=== PATIENT | female | born 1995 | race Caucasian/White ===

== ENCOUNTER 2025-02-15 22:49 | Emergency (ER) | payer MEDICAID ==
[~2025-02-15] VITALS: Ht 157.5 cm; Wt 86.0 kg
[2025-02-15 23:20] VITALS: O2SAT 100
[2025-02-16 01:52] LABS: CHLORIDE 106 mEq/L (98-107); POTASSIUM 3.7 mEq/L (3.5-5.1); SODIUM 139 mEq/L (136-145)
[2025-02-16 01:53] LABS: CALCIUM 9.2 mg/dL (8.7-10.4); CARBON DIOXIDE 24 mEq/L (21-32)
[2025-02-16 01:57] LABS: BASOPHILS % 0.3 % (0.0-2.0); EOSINOPHILS % 1.7 % (0.0-5.0); HEMATOCRIT. 40.5 % (36.0-48.0); HEMOGLOBIN. 13.5 g/dL (12.0-16.0); LYMPHOCYTES % 30.6 % (20.0-50.0); MEAN CORPUSCULAR HEMOGLOBIN 29.2 pg (28.0-32.0); MEAN CORPUSCULAR HGB CONC 33.3 g/dL (31.0-37.0); MEAN CORPUSCULAR VOLUME 87.6 fL (81.0-99.0); NEUTROPHILS % 62.4 % (40.0-76.0); PLATELET 254 x1000/uL (130-400); RED BLOOD CELL COUNT 4.63 mill/uL (4.2-5.4); RED CELL DISTRIBUTION WIDTH 13.4 % (11.6-14.6); WHITE BLOOD COUNT 10.1 x1000/uL (4.5-11.0)
[2025-02-16 01:58] LABS: CREATININE 0.8 mg/dL (0.6-1.0); GLUCOSE 105 mg/dL (70-105); UREA NITROGEN BLOOD 16 mg/dL (9-23)
[2025-02-16 01:59] LABS: B-HCG QUANTITATIVE 873 mIU/mL (<3)
[2025-02-16 03:10] VITALS: BP 116/60; PULSE 70; RESP 18; TEMP 36.9; O2SAT 99
== END 2025-02-16 03:10 | disposition home or self-care (01) ==
LOC: ER 22:49
DX: O03.4 Incomplete spontaneous abortion without complication (principal); N89.8 Other specified noninflammatory disorders of vagina; Z98.51 Tubal ligation status; Z3A.08 8 weeks gestation of pregnancy
CPT/HCPCS: 36415; 76801; 80048; 84702; 85025; 86850; 86900; 88305; 99284